=== PATIENT | female | born 1960 | race Caucasian/White ===

== ENCOUNTER 2019-09-18 08:23 | Outpatient (CLI) | payer OTHER ==
[~2019-09-18] VITALS: Ht 160 cm; Wt 63.6 kg
[2019-09-18] VITALS (10 sets, daily range): BP systolic 137–164; BP diastolic 59–77
[2019-09-18] MEDS ORDERED: nitroGLYCERIN 0.4mg SUBLingual tab SL PRN (09:05)
[2019-09-18] MEDS ORDERED: normal saline 500ml IV soln 500 ML IV ONE (09:05)
[2019-09-18] MEDS ORDERED: regadenoson 0.4mg/5ml syringe IV ONE (09:05)
[2019-09-18] MEDS ORDERED: atropine 0.1mg/ml 10ml syringe IV PRN (09:05)
[2019-09-18] MEDS ORDERED: aminophylline 250mg/10ml inj. IV PRN (09:05)
[2019-09-18] MEDS ORDERED: metoprolol tartrate 1mg/ml inj IV PRN (09:05)
== END 2019-09-18 23:59 | disposition home or self-care (01) ==
LOC: RAD 08:23
PROVIDERS: ATTEND Internal Medicine Interventional Cardiology
DX: R94.31 Abnormal electrocardiogram [ECG] [EKG] (principal)
CPT/HCPCS: 78452; A9500; J0280; J2785; J7040

== ENCOUNTER 2020-01-10 09:54 | Outpatient (CLI) | payer OTHER ==
[2020-01-10 10:38] LABS: ALANINE AMINOTRANSFERASE 23 U/L (12-78); ALBUMIN 4.2 G/DL (3.4-5.0); ALBUMIN/GLOBULIN RATIO 1.3 (1.1-1.5); ALKALINE PHOSPHATASE 63 IU/L (46-116); ANION GAP 8 (8-16); ASPARTATE AMINO TRANSFERASE 13 U/L (10-37); BILIRUBIN,TOTAL 0.5 MG/DL (0.1-1.0); BLOOD UREA NITROGEN 13 MG/DL (7-18); BUN/CREATININE RATIO 13.7 (6.6-38.0); CALCIUM 8.7 MG/DL (8.5-10.1); CHLORIDE 108 MMOL/L (99-107); CREATININE 0.95 MG/DL (0.40-0.90); GLUCOSE 108 MG/DL (70-104); POTASSIUM 4.5 MMOL/L (3.5-5.1); SODIUM 143 MMOL/L (135-145); TOTAL PROTEIN 7.4 G/DL (6.4-8.2); eGFR 60 ML/MIN
== END 2020-01-10 23:59 | disposition home or self-care (01) ==
LOC: LAB 09:54
PROVIDERS: ATTEND Nurse Practitioner Family
DX: R73.03 Prediabetes (principal); I10 Essential (primary) hypertension
CPT/HCPCS: 36415; 80053; 83036